=== PATIENT | female | born 1945 | race Caucasian/White ===

== ENCOUNTER 2022-07-21 19:22 | Inpatient (IN) | payer BC, MEDICARE ==
[~2022-07-21] VITALS: Ht 167.6 cm; Wt 50.3 kg
[2022-07-21] MEDS ORDERED: PIPERACILLIN /TAZOBACTAM 3.375 G in IV D5W 50 ML IV ONE (19:30)
[2022-07-21] MEDS ORDERED: GLUCAGON,HUMAN RECOMBINANT 1 MG/VIAL VIAL IV ONE (19:30)
[2022-07-21] MEDS ORDERED: ONDANSETRON HCL/PF 4 MG/2 ML VIAL IV ONE (19:30)
[2022-07-21] MEDS ORDERED: PIPERACILLIN /TAZOBACTAM 3.375 G VIAL IV ONE (19:47)
[2022-07-21] MEDS ORDERED: ONDANSETRON HCL/PF 4 MG/2 ML VIAL ONE (19:47)
[2022-07-21] MEDS ORDERED: GLUCAGON,HUMAN RECOMBINANT 1 MG/VIAL VIAL ONE (19:47)
[2022-07-21] MEDS ORDERED: WATER FOR INJECTION,STERILE 10 ML ONE (20:09)
[2022-07-21 20:10] LABS: BASOPHILS % (AUTO) 0.5 % (0.0-2.0); EOSINOPHILS % (AUTO) 1.6 % (0.0-6.0); HEMATOCRIT 42 % (33-45); HEMOGLOBIN 13.7 g/dL (11.5-14.8); LYMPHOCYTES # (AUTO) 2.8 K/uL (0.8-4.8); MEAN CORPUSCULAR HGB CONC 33 g/dl (31.0-36.0); MEAN CORPUSCULAR VOLUME 92 fL (82-100); MONOCYTES # (AUTO) 0.6 K/uL (0.1-1.30); MONOCYTES % (AUTO) 6.3 % (2.0-12.0); NEUTROPHILS # (AUTO) 5.5 K/uL (1.8-8.9); NEUTROPHILS % (AUTO) 60.6 % (43.0-81.0); PLATELET COUNT (AUTO) 267 K/uL (150-450); RED BLOOD CELL COUNT(AUTO) 4.54 MIL/uL (4.0-5.2)
[2022-07-21] MEDS ORDERED: ZOLPIDEM TARTRATE 5 MG TABLET PO PRN (20:30)
[2022-07-21] MEDS ORDERED: MAGNESIUM HYDROXIDE 30 ML UDC PO PRN (20:30)
[2022-07-21] MEDS ORDERED: Z GUARD REMEDY 4 OZ OINT TP PRN (20:30)
[2022-07-21] MEDS ORDERED: IV NS 0.9% 1,000 ML IV PRN (20:30)
[2022-07-21] MEDS ORDERED: ONDANSETRON HCL/PF 4 MG/2 ML VIAL IVP PRN (20:30)
[2022-07-21] MEDS ORDERED: ACETAMINOPHEN 325 MG TABLET PO PRN (20:30)
[2022-07-21] MEDS ORDERED: MAG HYDROX/AL HYDROX/SIMETH 30 ML UDC PO PRN (20:30)
[2022-07-21 20:57] LABS: CALCIUM, SERUM 10.1 mg/dL (8.5-10.1); POTASSIUM 4.8 mmol/L (3.5-5.1)
[2022-07-21 21:07] LABS: ALBUMIN 4.3 g/dL (3.4-5.0); BILIRUBIN,DIRECT 0.1 mg/dL (0.0-0.2); BILIRUBIN,TOTAL 0.2 mg/dL (0.2-1.0); TOTAL PROTEIN, SERUM 8.2 g/dL (6.4-8.2)
[2022-07-21] MEDS ORDERED: IOHEXOL-300 100 ML VIAL IV ONE (21:16)
[2022-07-21] MEDS ORDERED: IV NS 0.9% 250 ML IV ONE (21:16)
[2022-07-22] MEDS ORDERED: MORPHINE SULFATE INJ 2 MG/ML DISP.SYRIN IV ONE
[2022-07-22] MEDS ORDERED: ONDANSETRON HCL/PF 4 MG/2 ML VIAL IV ONE
[2022-07-22] MEDS ORDERED: ONDANSETRON HCL/PF 4 MG/2 ML VIAL ONE (00:01)
[2022-07-22] MEDS ORDERED: MORPHINE SULFATE INJ 4 MG/ML DISP.SYRIN ONE (00:01)
[2022-07-22 02:20] VITALS: BP 118/58
[2022-07-22] MEDS ORDERED: Z GUARD REMEDY 4 OZ OINT TP PRN (02:45)
[2022-07-22] MEDS ORDERED: MAG HYDROX/AL HYDROX/SIMETH 30 ML UDC PO PRN (02:45)
[2022-07-22] MEDS ORDERED: MAGNESIUM HYDROXIDE 30 ML UDC PO PRN (02:45)
[2022-07-22] MEDS ORDERED: ZOLPIDEM TARTRATE 5 MG TABLET PO PRN (02:45)
[2022-07-22] MEDS ORDERED: ONDANSETRON HCL/PF 4 MG/2 ML VIAL IVP PRN (02:45)
[2022-07-22] MEDS ORDERED: PIPERACILLIN /TAZOBACTAM 3.375 G in IV D5W 50 ML IV SCH ×4 (03:00→09:00)
[2022-07-22 04:00] VITALS: BP 113/47
[2022-07-22] MEDS ORDERED: PIPERACILLIN /TAZOBACTAM 3.375 G VIAL IV ONE (04:12)
[2022-07-22] MEDS: IV NS 0.9% 1,000 ML IV PRN ×2 (04:16→11:12)
[2022-07-22] MEDS ORDERED: MORPHINE SULFATE INJ 2 MG/ML DISP.SYRIN IV PRN ×2 (05:00→14:00)
[2022-07-22 06:34] LABS: BASOPHILS % (AUTO) 0.2 % (0.0-2.0); EOSINOPHILS % (AUTO) 0.1 % (0.0-6.0); HEMATOCRIT 38 % (33-45); HEMOGLOBIN 12.5 g/dL (11.5-14.8); LYMPHOCYTES # (AUTO) 0.6 K/uL (0.8-4.8); LYMPHOCYTES % (AUTO) 3.8 % (20.0-44.0); MEAN CORPUSCULAR HGB CONC 33 g/dl (31.0-36.0); MEAN CORPUSCULAR VOLUME 92 fL (82-100); MONOCYTES # (AUTO) 0.7 K/uL (0.1-1.30); MONOCYTES % (AUTO) 4.4 % (2.0-12.0); NEUTROPHILS # (AUTO) 15.4 K/uL (1.8-8.9); NEUTROPHILS % (AUTO) 91.5 % (43.0-81.0); PLATELET COUNT (AUTO) 173 K/uL (150-450); RED BLOOD CELL COUNT(AUTO) 4.15 MIL/uL (4.0-5.2); WHITE BLOOD COUNT (AUTO) 16.8 K/uL (4.3-11.0)
[2022-07-22 07:02] LABS: CALCIUM, SERUM 9.3 mg/dL (8.5-10.1); MAGNESIUM 1.8 mg/dL (1.8-2.4); PHOSPHORUS 4.1 mg/dL (2.5-4.9); POTASSIUM 4.2 mmol/L (3.5-5.1)
[2022-07-22 08:00] VITALS: BP 110/45
[2022-07-22 12:00] VITALS: BP 101/68
[2022-07-22] MEDS: PIPERACILLIN /TAZOBACTAM 3.375 G in IV D5W 100 ML IV SCH ×2 (12:42→19:47)
[2022-07-22] MEDS ORDERED: DEXAMETHASONE SOD PHOSPHATE 10 MG/ML VIAL ONE (15:13)
[2022-07-22] MEDS ORDERED: FAMOTIDINE/PF INJ 20 MG/2 ML VIAL IV ONE (15:14)
[2022-07-22 16:00] VITALS: BP 105/70
[2022-07-22 17:40] LABS: ABG BASE EXCESS -3.7 mmol/L; ABG OXYGEN SATURATION 98.8 % (92.0-98.5); ABG PCO2 41.5 mmHg (35.0-45.0); ABG PO2 155.5 mmHg (75.0-100.0); COHb 0.3 % (0.5-1.5); MetHb 0.3 % (0.0-1.5); O2Hb 98.2 % (94.0-97.0); SITE, ABG Right Radial; VENT MODE, BG NON REBREATHER
[2022-07-22 20:00] VITALS: BP 99/42
[2022-07-23] VITALS: BP 94/50
[2022-07-23] MEDS: PIPERACILLIN /TAZOBACTAM 3.375 G in IV D5W 100 ML IV SCH (03:36)
[2022-07-23 04:00] VITALS: BP 101/45
[2022-07-23 06:21] LABS: HEMATOCRIT 32 % (33-45); HEMOGLOBIN 10.4 g/dL (11.5-14.8); LYMPHOCYTES # (AUTO) 0.4 K/uL (0.8-4.8); LYMPHOCYTES % (AUTO) 2.3 % (20.0-44.0); MEAN CORPUSCULAR HGB CONC 32 g/dl (31.0-36.0); MEAN CORPUSCULAR VOLUME 92 fL (82-100); MONOCYTES # (AUTO) 0.3 K/uL (0.1-1.30); MONOCYTES % (AUTO) 1.4 % (2.0-12.0); NEUTROPHILS # (AUTO) 17.4 K/uL (1.8-8.9); NEUTROPHILS % (AUTO) 96.3 % (43.0-81.0); PLATELET COUNT (AUTO) 141 K/uL (150-450); RED BLOOD CELL COUNT(AUTO) 3.49 MIL/uL (4.0-5.2)
[2022-07-23 06:57] LABS: CALCIUM, SERUM 8.7 mg/dL (8.5-10.1); CREATININE 1.1 mg/dL (0.6-1.3); MAGNESIUM 1.7 mg/dL (1.8-2.4); PHOSPHORUS 4.4 mg/dL (2.5-4.9); POTASSIUM 4.2 mmol/L (3.5-5.1)
[2022-07-23 08:00] VITALS: BP 108/41
[2022-07-23] MEDS: Magnesium 1GM/D5W 100ML PREMIX 100 ML IV SCH ×2 (08:32→09:34)
[2022-07-23] MEDS ORDERED: TAMS-12 PO (11:09)
[2022-07-23] MEDS ORDERED: POLY17PO4 PO (11:09)
[2022-07-23] MEDS ORDERED: METO25TA4 PO (11:09)
[2022-07-23] MEDS ORDERED: LEVO50TA8 PO (11:09)
[2022-07-23] MEDS ORDERED: LISI20TA30 PO (11:09)
[2022-07-23] MEDS ORDERED: FLUV50TA3 PO (11:09)
[2022-07-23] MEDS ORDERED: CHOL100043 PO (11:09)
[2022-07-23] MEDS ORDERED: APIX5TAB PO (11:09)
[2022-07-23] MEDS ORDERED: ATOR10TA PO (11:09)
[2022-07-23 12:00] VITALS: BP 101/42
[2022-07-23] MEDS ORDERED: ONDANSETRON 4 MG TAB.RAPDIS PO PRN (13:30)
[2022-07-23] MEDS ORDERED: ONDANSETRON HCL 4 MG/5 ML SOLUTION PO PRN (13:30)
[2022-07-23] MEDS: ACETAMINOPHEN 325 MG TABLET PO PRN (15:25)
[2022-07-23 16:00] VITALS: BP 103/54
[2022-07-23] MEDS: DOXYCYCLINE HYCLATE (100 MG) 100 MG TABLET PO SCH ×2 (17:09→21:40)
[2022-07-23 20:00] VITALS: BP 104/61
[2022-07-23] MEDS: AMOX/CLAVULANATE 250 MG TABLET PO SCH (21:41)
[2022-07-24] VITALS: BP 122/57
[2022-07-24] MEDS: ACETAMINOPHEN 325 MG TABLET PO PRN (00:29)
[2022-07-24 04:00] VITALS: BP 123/59
[2022-07-24 06:15] LABS: BASOPHILS % (AUTO) 0.1 % (0.0-2.0); EOSINOPHILS % (AUTO) 0.6 % (0.0-6.0); HEMATOCRIT 32 % (33-45); HEMOGLOBIN 10.5 g/dL (11.5-14.8); LYMPHOCYTES % (AUTO) 7.5 % (20.0-44.0); MEAN CORPUSCULAR HGB CONC 33 g/dl (31.0-36.0); MEAN CORPUSCULAR VOLUME 91 fL (82-100); MONOCYTES # (AUTO) 0.9 K/uL (0.1-1.30); MONOCYTES % (AUTO) 6.1 % (2.0-12.0); NEUTROPHILS # (AUTO) 11.9 K/uL (1.8-8.9); NEUTROPHILS % (AUTO) 85.7 % (43.0-81.0); PLATELET COUNT (AUTO) 149 K/uL (150-450); RED BLOOD CELL COUNT(AUTO) 3.49 MIL/uL (4.0-5.2); WHITE BLOOD COUNT (AUTO) 13.9 K/uL (4.3-11.0)
[2022-07-24 06:58] LABS: CALCIUM, SERUM 8.9 mg/dL (8.5-10.1); CARBON DIOXIDE 28 mmol/L (21-32); CHLORIDE 105 mmol/L (98-107); CREATININE 0.9 mg/dL (0.6-1.3); GLUCOSE 100 mg/dL (74-106); MAGNESIUM 2.2 mg/dL (1.8-2.4); PHOSPHORUS 2.1 mg/dL (2.5-4.9); POTASSIUM 3.9 mmol/L (3.5-5.1); SODIUM SERUM 138 mmol/L (136-145); UREA NITROGEN, BLOOD 22 mg/dL (7-18)
[2022-07-24 08:00] VITALS: BP 120/71
[2022-07-24] MEDS: DOXYCYCLINE HYCLATE (100 MG) 100 MG TABLET PO SCH (08:38)
[2022-07-24] MEDS: AMOX/CLAVULANATE 250 MG TABLET PO SCH (08:38)
[2022-07-24 12:00] VITALS: BP 128/77
[2022-07-24] MEDS ORDERED: NEUTRA PHOS 1 POWD.PACKET PO ONE ×2 (13:00)
[2022-07-24] MEDS ORDERED: ENSURE ENLIVE 237 ML LIQUID (VANILLA) PO SCH (13:00)
[2022-07-24] MEDS ORDERED: PROSOURCE / PROSTAT (PYXIS) 30 ML UDC GT SCH (13:00)
[2022-07-24] MEDS ORDERED: AMOX1TAB49 PO (14:38)
[2022-07-24] MEDS ORDERED: DOXY100T2 PO (14:38)
[2022-07-24] MEDS ORDERED: Prosource PO (14:38)
[2022-07-24 16:00] VITALS: BP 110/59
[2022-07-24] MEDS ORDERED: THERAHONEY GEL 1.5 OZ TUBE TP SCH (21:00)
== END 2022-07-24 17:28 | disposition hospice, home (50) | DRG 393 ==
LOC: ER 20:08 → TELE1 07-22 02:52
PROVIDERS: ADMIT Nurse Practitioner Acute Care; ATTEND Nurse Practitioner Acute Care
PROC: 0DC58ZZ Extirpation of Matter from Esophagus, Via Natural or Artificial Opening Endoscopic (ICD-10-PCS; principal; 2022-07-22)
PROC: 0D758ZZ Dilation of Esophagus, Via Natural or Artificial Opening Endoscopic (ICD-10-PCS; 2022-07-22)
DX: T18.128A Food in esophagus causing other injury, initial encounter (principal); G93.41 Metabolic encephalopathy; J69.0 Pneumonitis due to inhalation of food and vomit; K29.70 Gastritis, unspecified, without bleeding; K22.2 Esophageal obstruction; Z91.011 Allergy to milk products; Z91.048 Other nonmedicinal substance allergy status; F03.90 Unspecified dementia, unspecified severity, without behavioral disturbance, psychotic disturbance, mood disturbance, and anxiety; L89.159 Pressure ulcer of sacral region, unspecified stage; R79.89 Other specified abnormal findings of blood chemistry; F09 Unspecified mental disorder due to known physiological condition; D72.829 Elevated white blood cell count, unspecified; X58.XXXA Exposure to other specified factors, initial encounter; Y92.009 Unspecified place in unspecified non-institutional (private) residence as the place of occurrence of the external cause
CPT/HCPCS: 36415; 36600; 70491-TC; 71045-TC; 71260-TC; 80048-TC; 80076-TC; 82803-TC; 83735-TC; 84100-TC; 85025-TC; 87040-TC; 87081-TC; 92526; 92611-TC; 94799-TC; C1726; C9803; G0378; J0330; J1100; J1610; J2270; J2405; J2543; J2704; J2765; J3475; J3490; J7030; J7050; J7060; Q0162; Q9967